=== PATIENT | male | born 1990 | race Caucasian/White ===

== ENCOUNTER 2020-02-06 22:43 | Emergency (ER) | payer OTHER, SELFPAY ==
--- NOTE | ~2020-02-06 | XR_ITS ---
EXAMINATION: XR elbow LT 2V DATE: 02/06/2020 23:17 INDICATION: Left elbow injury TECHNIQUE: Anteroposterior and lateral views of the left elbow were obtained. COMPARISON: None. FINDINGS: Subtle increased angulation of the cortex at the left radial neck consistent with nondisplaced fractu re. Alignment remains essentially anatomic. No other fractures identified. Joint spaces are normal. N o left elbow joint effusion. Lucencies in the soft tissues suggesting a deep laceration along the rachell karishma aspect of the proximal forearm. Tiny radiopaque densities likely representing foreign debris beronica g the margins of the suspected laceration. IMPRESSION: 1. Nondisplaced fracture at the left radial neck. 2. Small amount of radiopaque debris along the margins of a deep laceration at the posterior proximal forearm. Reviewed, dictated and finalized at location A.
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
[2020-02-06 22:45] VITALS: BP 137/75; PULSE 76; RESP 18; TEMP 36.6; O2SAT 97
[2020-02-06] MEDS: LIDOCAINE HCL 1% LOCAL INJ 20 ML VIAL 8 ML INFILTRATE (23:32)
[2020-02-06] MEDS: KETOROLAC (*BKC) 60 MG/2 ML VIAL IM (23:32)
[2020-02-06] MEDS: TETANUS,DIPHTHERIA,AC PERTUSSIS ADULT 0.5 ML (ADACEL) IM (23:33)
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
[2020-02-06 23:57] VITALS: BP 137/75; PULSE 79; RESP 20; TEMP 37.1; O2SAT 98
== END 2020-02-07 00:05 | disposition home or self-care (01) ==
PROVIDERS: Emergency Provider Emergency Medicine; PCP Family Medicine
DX: S51.012A Laceration without foreign body of left elbow, initial encounter (principal); S42.402A Unspecified fracture of lower end of left humerus, initial encounter for closed fracture; V20.4XXA Motorcycle driver injured in collision with pedestrian or animal in traffic accident, initial encounter
CPT/HCPCS: 12001; 29125; 73070; 73560; 90471; 90715; 96372; 99283; 99284; A4565; J1885

== ENCOUNTER 2020-03-12 17:43 | Emergency (ER) | payer OTHER, SELFPAY ==
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
[2020-03-12 17:51] VITALS: BP 153/80; PULSE 103; RESP 15; TEMP 37.7; O2SAT 97
[2020-03-12] MEDS: cefTRIAXone 1 GM VIAL IM (18:26)
[2020-03-12] MEDS: SILVER SULFADIAZINE 1% CR 50 GM JAR (*BKC) 1 APPLIC TOPICAL (18:26)
[2020-03-12] MEDS: LIDOCAINE HCL 1% LOCAL INJ 20 ML VIAL (18:26)
[2020-03-12] MEDS: KETOROLAC (*BKC) 60 MG/2 ML VIAL IM (18:26)
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
[2020-03-12 19:22] VITALS: RESP 14; O2SAT 100
== END 2020-03-12 19:28 | disposition home or self-care (01) ==
PROVIDERS: Emergency Provider Emergency Medicine; PCP Family Medicine
DX: T14.8XXA Other injury of unspecified body region, initial encounter (principal); V29.40XA Motorcycle driver injured in collision with unspecified motor vehicles in traffic accident, initial encounter
CPT/HCPCS: 71100; 73030; 73070; 73521; 73600; 96372; 99283; 99284; A9270; J0696; J1885

== ENCOUNTER 2020-03-19 18:57 | Emergency (ER) | payer OTHER, SELFPAY ==
[2020-03-19 19:07] VITALS: BP 149/87; PULSE 100; RESP 16; TEMP 36.8; O2SAT 96
[2020-03-19 19:11] VITALS: BP 149/87; PULSE 100; RESP 16; TEMP 36.8; O2SAT 96
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
[2020-03-19 19:32] VITALS: RESP 15
== END 2020-03-19 19:33 | disposition home or self-care (01) ==
PROVIDERS: Emergency Provider Emergency Medicine; PCP Family Medicine
DX: S76.212A Strain of adductor muscle, fascia and tendon of left thigh, initial encounter (principal); W17.89XA Other fall from one level to another, initial encounter
CPT/HCPCS: 99281; 99282